=== PATIENT | female | born 1985 | race Two or more races ===

== ENCOUNTER 2019-10-21 06:05 | Inpatient (IN) | payer OTHER ==
[~2019-10-21] VITALS: Ht 165.1 cm; Wt 86.2 kg
[2019-10-21] MEDS ORDERED: ASA PO (06:57)
[2019-10-21] MEDS ORDERED: PRENATAL TABLE1 EAC1 PO (06:57)
[2019-10-21] MEDS ORDERED: PROBIOTIC PO (06:58)
== END 2019-10-24 15:45 | disposition home or self-care (01) | DRG 788 ==
LOC: LDR 06:05 → O/R 06:05 → SURG-SUITE 06:05 → O/R 13:46 → OB/GYN 14:28 → SURG-SUITE 15:53
PROVIDERS: ADMIT Obstetrics & Gynecology
PROC: 4A1HXCZ Monitoring of Products of Conception, Cardiac Rate, External Approach (ICD-10-PCS; 2019-10-21)
PROC: 10D00Z1 Extraction of Products of Conception, Low, Open Approach (ICD-10-PCS; principal; 2019-10-21 08:00)
DX: O34.211 Maternal care for low transverse scar from previous cesarean delivery (principal); Z3A.39 39 weeks gestation of pregnancy; Z37.0 Single live birth

== ENCOUNTER 2022-10-06 08:15 | Inpatient (IN) | payer OTHER ==
[~2022-10-06] VITALS: Ht 165.1 cm; Wt 74.4 kg
[~2022-10-06 08:15] MED LIST: ASA PO; PRENATAL TABLE1 EAC1 PO; PROBIOTIC PO
== END 2022-10-14 11:49 | disposition home or self-care (01) | DRG 743 ==
LOC: OB/GYN 10-11 08:15 → O/R 10-11 11:13 → OB/GYN 10-11 12:30
PROVIDERS: ADMIT Obstetrics & Gynecology; ATTEND Obstetrics & Gynecology
PROC: 0UT60ZZ Resection of Left Fallopian Tube, Open Approach (ICD-10-PCS; 2022-10-11)
PROC: 0UT10ZZ Resection of Left Ovary, Open Approach (ICD-10-PCS; 2022-10-11)
PROC: 0UT90ZZ Resection of Uterus, Open Approach (ICD-10-PCS; principal; 2022-10-11 12:30)
DX: N72 Inflammatory disease of cervix uteri (principal); N83.12 Corpus luteum cyst of left ovary; Z20.822 Contact with and (suspected) exposure to COVID-19